=== PATIENT | male | born 1975 | race Caucasian/White ===

== ENCOUNTER 2017-12-22 00:51 | Emergency (ER) | payer MEDICAID | END 2017-12-22 02:45 | disposition left against medical advice (07) | LOC: D.ER 00:51 | DX: K94.29 Other complications of gastrostomy (principal) ==

== ENCOUNTER → 2018-04-01 10:37 | Outpatient (CLI) | payer MEDICAID | END | disposition home or self-care (01) | LOC: D.CT 10:37 | DX: R19.4 Change in bowel habit (principal); K59.00 Constipation, unspecified; R63.4 Abnormal weight loss ==

== ENCOUNTER 2018-10-07 06:19 | Day surgery (SDC) | payer MEDICAID ==
[~2018-10-07] VITALS: Ht 180.3 cm; Wt 50.0 kg
--- NOTE | ~2018-10-07 | OP ---
PATIENT NAME: FARHAN GUZMÁN MEDICAL RECORD: [id number] :79 LOCATION:[facility] ADMISSION DATE: SURGEON: LUPE BRYANT MD DATE OF OPERATION: 10/07/2018 PROCEDURE: EGD with biopsy, EGD with balloon dilatation. SCOPE: Olympus video gastroscope and a CRE Microvasive balloon from 45-60 [place]. MEDICATIONS: Per TIVA anesthesia. The patient received 150 mg of propofol for this procedure, O2 4 liters. INDICATION FOR THE PROCEDURE: Dysphagia, gastroesophageal reflux disease, abnormal weight loss, and epigastric abdominal pain. The patient previously had a PEG for nutrition. He now takes nutrition orally. He will have an EGD this date. FINDINGS: Informed consent was given. The patient was made comfortable with the above medications. After reaching an adequate level of sedation by slow IV push, the patient was placed on his left side. The endoscope was then advanced under direct visualization through the posterior pharyngeal area and advanced to the distal esophagus. Mild reflux inflammation was seen in this area and after dilating the distal esophageal stricture to 60-[place], biopsies were obtained. On entering the stomach, the patient was noted to have mild gastritis throughout. We did see evidence of the previous PEG site with scarring noted along the greater curvature of the stomach in the body. Also seen was a Hemoclip, which is still attached at the site of a previous ulceration. At the antral area we did biopsy looking for the presence of Helicobacter pylori and also for histopathology. The scope was then advanced into the duodenal bulb where some mild inflammation was noted, slightly hemorrhagic and biopsies were obtained. The second portion of the duodenum had mild inflammation with bile present and biopsies were taken in this area for review. The scope was then withdrawn. IMPRESSION: 1. Mild reflux esophagitis, biopsied the distal esophagus. 2. Distal esophageal stricture dilated to 60-[place] without complication. 3. Mild gastritis throughout the entire stomach. Biopsy taken in the antral area looking for Helicobacter pylori and histopathology. 4. Evidence of the previous PEG site with scarring noted in the body of the stomach along the greater curvature. 5. Also seen was a Hemoclip still in place, which was most likely used to address a hemorrhagic ulceration in this area. 6. Duodenal bulb with some mild hemorrhagic duodenitis, biopsied. 7. Second portion of the duodenum with mild inflammation biopsied. PLAN: 1. The patient should follow reflux precautions stringently, both dietary and positional that is avoid chocolate, tomato, citrus, caffeine, fatty food, peppermint, no tobacco and no alcohol, if these are problematic. He should not eat late at night, sleep with the head of the bed elevated and sit up for 2 hours after every meal. 2. We will start some famotidine at a dose of 20 mg p.o. b.i.d. Ask the patient to avoid anti-inflammatory drugs. He can also restart his Plavix at OPERATIVE REPORT [id number] FARHAN GUZMÁN this time. We will see him back p.r.n. in clinic. TRANSINT:[id number] Voice Confirmation ID: [id number] DOCUMENT ID: [id number] LUPE BRYANT MD CC: ROSSY GEORGE MD and VAISHALI GORMAN MD [id number] DICTATION DATE: 10/07/1835 LOCK EXPERT: 10/07/18 [id number] [facility] [address] [place] [address]
[2018-10-07 06:40] LABS: BASOPHILS 0.4 % (0-2); EOSINOPHILS 1.4 % (0-7); HEMATOCRIT 41.1 % (42.0-54.0); IMMATURE GRANULOCYTES 0.2 % (0-5); LYMPHOCYTES 43.1 % (15-50); MCH 30.4 pg (26.0-34.0); MCHC 31.6 g/dL (31.0-37.0); MCV 96.3 fL (80.0-100.0); MEAN PLATELET VOLUME 9.5 fL (7.4-10.4); MONOCYTES 7.3 % (2-11); NEUTROPHILS 47.6 % (40-80); PLATELET COUNT 265 10x3/uL (130-400); RBC 4.27 10x6/uL (4.20-6.10); RDW 15.5 % (11.5-14.5); WBC 5.2 10x3/uL (4.8-10.8)
[2018-10-07 06:57] LABS: INR 1.11 (0.85-1.17); PROTIME 13.8 SECONDS (11.6-15.0)
[2018-10-07] MEDS ORDERED: PLAVIX75 MG PO (07:21)
[2018-10-07] MEDS ORDERED: SEROQUEL25 MG PO (07:21)
[2018-10-07] MEDS ORDERED: COREG6.25 MG PO (07:22)
[2018-10-07] MEDS ORDERED: ULTRAM50 MG PO (07:23)
[2018-10-07 07:30] VITALS: BP 132/96; Ht 180.3 cm; Wt 50.0 kg
--- NOTE | 2018-10-07 10:20 | NUR ---
DC INSTRUCTIONS GIVEN TO MOTHER. STATES UNDERSTANDING. DC'D IV CATH FULLY INTACT.
--- NOTE | 2018-10-07 10:26 | NUR ---
PT LEFT UNIT VIA WC AT 1025
== END 2018-10-07 10:25 | disposition home or self-care (01) ==
LOC: D.OPS 06:19
PROVIDERS: Anesthesiology; ATTEND Internal Medicine Gastroenterology
DX: K21.0 Gastro-esophageal reflux disease with esophagitis (principal); K22.2 Esophageal obstruction; K29.81 Duodenitis with bleeding; K29.50 Unspecified chronic gastritis without bleeding; Z01.812 Encounter for preprocedural laboratory examination